=== PATIENT | female | born 2000 | race Caucasian/White ===

== ENCOUNTER 2018-11-14 04:17 | Observation (INO) | payer BC ==
[~2018-11-14] VITALS: Ht 165.1 cm; Wt 61.7 kg
[~2018-11-14 04:17] MED LIST: NORG1TAB75 PO; PRED20TA6 PO
--- NOTE | 2018-11-14 04:19 | ER Report ---
History and Physical Time Seen By MD: 04:19 HPI/ROS CHIEF COMPLAINT: Abdominal pain, hematochezia HISTORY OF PRESENT ILLNESS: Patient is a 18-year-old female here with complaints of abdominal pain which started yesterday with vague abdominal discomfort, dark stools, nausea, vomiting, worsening abdominal pain overnight. Patient does have a history of a recent diagnosis of generalized vasculitis with joint swelling. Patient denies prior history of abdominal pain similar to this, denies diagnosis of IBD. Patient is tachycardic complaining of nausea, vomiting, abdominal pain at time of arrival. Patient is being tapered off of prednisone and was just started on azathioprine. REVIEW OF SYSTEMS: Constitutional: No fever, + chills. Eyes: No discharge. ENT: No sore throat. Cardiovascular: No chest pain, no palpitations. Respiratory: No cough, no shortness of breath. Gastrointestinal: + diffuse abdominal pain, + nausea and vomiting, + dark stools Genitourinary: No hematuria. Musculoskeletal: No back pain. Skin: No rashes. Neurological: No headache. Allergies: Coded Allergies: No Known Drug Allergies (Unverified , 11/14/18) Home Meds Active Scripts Promethazine Hcl (PROMETHAZINE HCL) 25 Mg Tablet, 12.5 MG PO Q8H PRN for NAUSEA, #12 TAB Prov:DONOVAN HILTON MD 11/15/18 Prednisone 10 Mg Tab (PREDNISONE 10 MG TAB) 10 Mg Tablet, 10 MG PO QDAY, #30 TAB Prov:DONOVAN HILTON MD 11/15/18 Reported Medications Azathioprine (AZATHIOPRINE) 50 Mg Tablet, 1 TAB PO QDAY 11/14/18 Norgestimate-Ethinyl Estradiol (TRI-SPRINTEC) 1 Each Tablet, 1 TAB PO QDAY 10/13/18 Discontinued Reported Medications Prednisone (PREDNISONE) 20 Mg Tablet, 15 MG PO QDAY, TAB 10/13/18 Smoking Status: Never Smoker Constitutional Vital Sign - Last 24 Hours 11/14/18 11/14/18 11/14/18 11/14/18 04:24 04:32 04:47 05:02 Temp 99.5 Pulse 123 103 109 104 B/P (MAP) 115/47 Pulse Ox 93 96 95 98 O2 Delivery Room Air 11/14/18 11/14/18 11/14/18 11/14/18 05:17 05:37 06:22 06:37 Pulse 104 102 106 ??? B/P (MAP) 116/67 (83) Pulse Ox 98 95 92 93 11/14/18 11/14/18 11/14/18 06:52 07:07 08:00 Pulse 94 101 97 Pulse Ox 92 91 92 Physical Exam General Appearance: The patient is alert, has no immediate need for airway protection and no signs of toxicity. Uncomfortable appearing Eyes: Pupils equal and round no pallor or injection. ENT, Mouth: Mucous membranes are moist. Respiratory: There are no retractions, lungs are clear to auscultation. Cardiovascular: Rapid regular rhythm Gastrointestinal: Abdomen is soft and diffusely tender. Neurological: No focal neurological deficits Skin: Warm and dry, no rashes. Musculoskeletal: Neck is supple non tender. Extremities are nontender, nonswollen and have full range of motion. DIFFERENTIAL DIAGNOSIS: After history and physical exam differential diagnosis was considered for abdominal pain including but not limited to appendicitis, cholecystitis, gastritis and urinary tract infection, IBD, autoimmune disorder Medical Decision Making Data Points Result Diagram: 11/15/1817 11/15/1817 Laboratory Hematology Test 11/14/18 04:32 11/14/18 04:59 11/14/18 06:08 Erythrocyte Sedimentation Rate 3 mm/HOUR (0-20) Prothrombin Time 15.1 seconds (12.0-14.4) Prothromb Time International Ratio 1.18 Activated Partial Thromboplast Time 25 seconds (23-35) Total Bilirubin 0.7 mg/dl (0.2-1.3) Aspartate Amino Transf (AST/SGOT) 39 U/L (0-35) Alanine Aminotransferase (ALT/SGPT) 28 U/L (0-56) Alkaline Phosphatase 84 U/L (0-126) Lactate Dehydrogenase 489 U/L (0-590) C-Reactive Protein 2.9 mg/dl (<1.0) Total Protein 7.2 g/dl (6.3-8.2) Albumin 3.9 g/dl (3.5-5.0) Lipase 231 U/L (23-300) Lactate 4.1 mmol/L (0.7-2.1) Urine Color Yellow Urine Clarity Clear Urine pH 8.0 pH (4.8-9.5) Urine Specific Dennard 1.045 Urine Protein Negative mg/dL (NEGATIVE) Urine Glucose (UA) Negative mg/dL (NEGATIVE) Urine Ketones Negative mg/dL (NEGATIVE) Urine Blood Negative (NEGATIVE) Urine Nitrite Negative (NEGATIVE) Urine Bilirubin Negative (NEGATIVE) Urine Urobilinogen Negative mg/dL (0.2-1.9) Urine Leukocyte Esterase Negative (NEGATIVE) Urine RBC 2 /HPF (0-2/HPF) Urine WBC 8 /HPF (0-5/HPF) Urine Squamous Epithelial Cells Many /LPF (</=FEW) Urine Bacteria Negative /HPF (NONE-FEW) Urine Mucus None /HPF (NONE-FEW) Chemistry Test 11/14/18 04:32 11/14/18 04:59 11/14/18 06:08 Erythrocyte Sedimentation Rate 3 mm/HOUR (0-20) Prothrombin Time 15.1 seconds (12.0-14.4) Prothromb Time International Ratio 1.18 Activated Partial Thromboplast Time 25 seconds (23-35) Total Bilirubin 0.7 mg/dl (0.2-1.3) Aspartate Amino Transf (AST/SGOT) 39 U/L (0-35) Alanine Aminotransferase (ALT/SGPT) 28 U/L (0-56) Alkaline Phosphatase 84 U/L (0-126) Lactate Dehydrogenase 489 U/L (0-590) C-Reactive Protein 2.9 mg/dl (<1.0) Total Protein 7.2 g/dl (6.3-8.2) Albumin 3.9 g/dl (3.5-5.0) Lipase 231 U/L (23-300) Lactate 4.1 mmol/L (0.7-2.1) Urine Color Yellow Urine Clarity Clear Urine pH 8.0 pH (4.8-9.5) Urine Specific Dennard 1.045 Urine Protein Negative mg/dL (NEGATIVE) Urine Glucose (UA) Negative mg/dL (NEGATIVE) Urine Ketones Negative mg/dL (NEGATIVE) Urine Blood Negative (NEGATIVE) Urine Nitrite Negative (NEGATIVE) Urine Bilirubin Negative (NEGATIVE) Urine Urobilinogen Negative mg/dL (0.2-1.9) Urine Leukocyte Esterase Negative (NEGATIVE) Urine RBC 2 /HPF (0-2/HPF) Urine WBC 8 /HPF (0-5/HPF) Urine Squamous Epithelial Cells Many /LPF (</=FEW) Urine Bacteria Negative /HPF (NONE-FEW) Urine Mucus None /HPF (NONE-FEW) Coagulation Test 11/14/18 04:32 Prothrombin Time 15.1 seconds Prothromb Time International Ratio 1.18 Activated Partial Thromboplast Time 25 seconds Urinalysis Test 11/14/18 06:08 Urine Color Yellow Urine Clarity Clear Urine pH 8.0 pH (4.8-9.5) Urine Specific Dennard 1.045 Urine Protein Negative mg/dL (NEGATIVE) Urine Glucose (UA) Negative mg/dL (NEGATIVE) Urine Ketones Negative mg/dL (NEGATIVE) Urine Blood Negative (NEGATIVE) Urine Nitrite Negative (NEGATIVE) Urine Bilirubin Negative (NEGATIVE) Urine Urobilinogen Negative mg/dL (0.2-1.9) Urine Leukocyte Esterase Negative (NEGATIVE) Urine RBC 2 /HPF (0-2/HPF) Urine WBC 8 /HPF (0-5/HPF) Urine Squamous Epithelial Cells Many /LPF (</=FEW) Urine Bacteria Negative /HPF (NONE-FEW) Urine Mucus None /HPF (NONE-FEW) Microbiology Microbiology Date/Time Source Procedure Growth Status 11/14/18 05:05 Blood Peripheral Draw Blood Culture - Preliminary NO GROWTH AFTER 1 DAY, REINCUBATED Resulted 11/14/18 04:59 Blood Peripheral Draw Blood Culture - Preliminary NO GROWTH AFTER 1 DAY, REINCUBATED Resulted ED Course/Re-evaluation ED Course Patient is a 18-year-old female with a recent history of vasculitis started on azathioprine, weaning off of prednisone currently on 20 mg here with abdominal pain which started yesterday, acutely worsened today with associated nausea, vomiting. Patient is tender in all quadrants on abdominal exam.. CT imaging showed thickening of the stomach wall, proximal small intestine. Patient did have a white count of 19,000, lactate was elevated at 4. ESR CRP were unremarkable. Patient was given 2 L normal saline bolus, Protonix for upper GI bleed suspicion, Solu-Medrol 125 mg, Zofran, fentanyl. Patient had significant relief of symptoms however due to her consolation symptoms in the setting of azathioprine and prednisone immunosuppression, recommendation was made to admit to medicine and consider upper endoscopy scoping to pursue upper GI bleed. H&H are stable. I discussed the patient with Dr. Hilton briefly and Dr. Rashid the underlying dayshift will be contacted. Blood cultures pending. Patient was hemodynamic was stable at time of signout to Dr. Mejia. Decision to Disposition Date: Nov 14, 2018 Decision to Disposition Time: 07:00 Depart Departure Latest Vital Signs Vital Signs Date Time Temp Pulse Resp B/P (MAP) Pulse Ox O2 Delivery O2 Flow Rate FiO2 11/14/18 08:00 97 92 11/14/18 05:37 116/67 (83) 11/14/18 04:24 99.5 Room Air Impression: Primary Impression: Abdominal pain Additional Impression: Melena Condition: Improved Disposition: HOME OR SELF-CARE New Scripts Promethazine Hcl (PROMETHAZINE HCL) 25 Mg Tablet 12.5 MG PO Q8H PRN for NAUSEA, #12 TAB Prov: DONOVAN HILTON MD 11/15/18 Prednisone 10 Mg Tab (PREDNISONE 10 MG TAB) 10 Mg Tablet 10 MG PO QDAY, #30 TAB Prov: DONOVAN HILTON MD 11/15/18 Problem Qualifiers Primary Impression: Abdominal pain Abdominal location: epigastric Qualified Codes: R10.13 - Epigastric pain JOHNNA ALBERT DO Nov 14, 2018 04:19
[2018-11-14] MEDS ORDERED: AZAT50TA25 PO (04:24)
[2018-11-14] MEDS ORDERED: NS(*) 0.9% 1000 ML BAG 1,000 ML IV ONE ×2 (04:45→05:50)
[2018-11-14] MEDS ORDERED: fentaNYL CITR 100 MCG/2 ML AMP IVP ONE (04:45)
[2018-11-14] MEDS ORDERED: methylPREDNIS SUCC 125 MG/2ML IVP ONE (04:45)
[2018-11-14] MEDS ORDERED: ONDANSETRON 4 MG/2 ML VIAL IVP ONE (04:45)
[2018-11-14] MEDS ORDERED: IOPAMIDOL 76% 150 ML INFUS BTL 150 ML ONE (05:08)
[2018-11-14 05:11] LABS: PLATELET COUNT, AUTOMATED 395 K/uL (150-450)
[2018-11-14 05:13] LABS: INR 1.18
--- NOTE | 2018-11-14 06:16 | RADIOLOGY IMAGING REPORT ---
[place] [facility] [place] NAME: Riana Rojas : 2000 MR: [id number] V: [id number] EXAM DATE: ORDERING PHYSICIAN: JOHNNA ALBERT TECHNOLOGIST: Location: [facility] [place] Patient: Riana Rojas : 2000 Visit/Account:[id number] Date of Sevice: 11/14/2018 CT of the abdomen and pelvis with contrast: Indication: Generalized abdominal pain and vomiting. Technique: Helical CT was performed through the abdomen and pelvis following IV contrast enhancement with 5 cc of Isovue-[id number]. Multiplanar reconstructions are reviewed. One of the following dose optimization techniques was utilized in the performance of this exam: Autom ated exposure control; adjustment of the mA and/or kV according to the patient's size; or use of an i terative reconstruction technique. Specific details can be referenced in the facility's radiology CT exam operational policy. Comparison: None available. Lower lung page: No parenchymal or pleural abnormality is identified. Liver: Normal in size, shape, and density. There is uniform enhancement of the venous structures. Gallbladder/biliary tree: The gallbladder is normal in size and homogeneous in density. The bile duct s are not dilated. Pancreas: Normal in size, shape, and density. There are no signs of peripancreatic inflammation or fl uid. Spleen: Normal in size, shape, and density. Adrenal glands: Within normal limits. Kidneys/urinary bladder: The kidneys appear normal in size, shape, and density. There are no signs of urinary tract calculus or obstruction. The bladder appears homogeneous and unremarkable. Intestinal structures: There appears to be thickening and increased enhancement of the wall of the st omach, portions of the small intestine, and proximal colon, suggesting gastroenteritis. The appendix appears normal. The colon is otherwise unremarkable. Pelvis: The uterus is normal in size. The endometrial cavity appears septate. The adnexal structures are unremarkable. Aorta and vascular structures: Within normal limits. Ascites or fluid collections: None seen. Skeletal structures: Well mineralized and intact. Impression: Findings suggestive of gastroenteritis. The appendix appears normal. Report Dictated By: Jonathan Xiao MD at 11/14/2018 5:58 AM Report E-Signed By: Jonathan Xiao MD at 11/14/2018 6:13 AM WSN:[id number]
[2018-11-14] MEDS ORDERED: PANTOPRAZOLE SOD(*)40 MG VIAL 80 MG in NS(*) 0.9% 100 ML BAG 100 ML IVPB ONE (06:35)
[2018-11-14 08:28] VITALS: BP 105/73
[2018-11-14] MEDS ORDERED: INFLUENZA VIRUS VAC 0.5ML SYR IM ONLY ONE (09:15)
[2018-11-14] MEDS ORDERED: predniSONE 5 MG TAB PO SCH (09:30)
--- NOTE | 2018-11-14 09:33 | General Surgery Consultation ---
History of Present Illness Requesting Physician Maldonado Rashid Reason for Consult Abdominal pain, melena Chief Complaint Abdominal pain History of Present Illness Riana Bahena is a 18 year old female with recently diagnosed vasculitis being treated with a prednisone taper and azathioprine. The patient presents today with complaints of epigastric abdominal pain, nausea and vomiting for approximately 24 hours. In regard to her abdominal pain, Riana reports the pain localized to the epigastrium which progressively worsened overnight. She denies any radiation or migration of the pain. She has had nausea and about 5 episodes of vomiting. Riana report her emesis to have been watery; however, her last emesis was bloody in appearance, which she described as "watered down Koolaid." She has been intolerant of PO intake, denies any other aggravating or alleviating factors for her pain / nausea / vomiting. She denies using any PPIs or H2 blockers since initiating her prednisone in September. The patient additionally reports bloody streaking of her stools for about 4 weeks, she denies any archana melena, pain with defecation or need to strain for bowel movements. She does note that since initiating azathioprine therapy her bowel habits have changed. Previously she reports a bowel movement about every 4 days, since beginning azathioprine this has increased to 1-2 soft stools daily. She denies any fevers or chills. She has had no known sick contacts. The patient denies a known personal history of inflammatory bowel diseases but her father does have ulcerative colitis. She denies any prior abdominal surgical history. History Home Meds Reported Medications Azathioprine (AZATHIOPRINE) 50 Mg Tablet, 1 TAB PO QDAY 11/14/18 Prednisone (PREDNISONE) 20 Mg Tablet, 15 MG PO QDAY, TAB 10/13/18 Norgestimate-Ethinyl Estradiol (TRI-SPRINTEC) 1 Each Tablet, 1 TAB PO QDAY 10/13/18 Allergies: Coded Allergies: No Known Drug Allergies (Unverified , 11/14/18) Family History: FH: COPD (chronic obstructive pulmonary disease) GRANDFATHER FH: HTN (hypertension) MOTHER, Age:47 FH: asthma BROTHER OR SISTER FH: diabetes mellitus GRANDMOTHER FH: hypothyroidism BROTHER OR SISTER FH: rheumatoid arthritis FATHER, Age:55 Polycystic ovarian syndrome MOTHER, Age:47 Ulcerative colitis FATHER, Age:55 Review of Systems Constitutional: No Fever, No Weight Loss, No Weight Gain, No Chills, No Night Sweats, No Other Neurological: No Syncope, No Confusion, No Weakness, No Dizziness, No Slurred Speech, No Other Eyes: No Vision Change, No Loss of Vision, No Photophobia, No Other ENT: Sinus Congestion (Chronic, improved with initiation of oral prednisone) Cardiovascular: No Chest Pain, No Palpitations, No Orthostatic Hypotension, No Other Respiratory: No Shortness of Breath, No Cough, No Wheezing, No Other Gastrointestinal: Nausea, Vomiting, Diarrhea, Hematemesis, Other (Small volume blood per rectum) Genitourinary: Other (Vaginal discharge) Musculoskeletal: Other (Recent history of right greater than left ankle pain with swelling, improved with prednisone) Psychiatric: No Depression, No Anxiety, No Other Exam Vital Signs Vital Signs Date Time Temp Pulse Resp B/P (MAP) Pulse Ox O2 Delivery O2 Flow Rate FiO2 11/14/18 08:28 98.4 91 16 105/73 (84) 91 Room Air General Appearance: Alert, Awake, No Acute Distress Neuro: No Gross deficits Eyes: PERRLA ENT: Moist Mucous Membranes, Oropharynx Clear Neck: No Masses Cardiovascular: Normal Rhythm & Peripheral Pulses, Regular Rate and Rhythm, No Edema Respiratory: No Respiratory Distress Chest: No Tenderness GI: Other (Soft, non-distended. Tender to palpation focally in the epigastrium without rebound tenderness or guarding. No palpable masses.) Musculoskeletal: No Weakness/Pain Extremities: Soft and Non Tender, Warm, Perfused Integumentary: Skin Intact without Lesion / Mass Psych: Alert & Oriented X3, Appropriate Mood & Affect Medical Decision Making Data Points Result Diagram: 11/14/1843111/14/18 043 EKG / Imaging Monitor Interpretation: Normal Sinus Rhythm Pre-Admit Course Medical Record Review: Yes Assessment and Plan Problems: (1) Abdominal pain Status: Acute Assessment & Plan: Patient with acute epigastric abdominal pain. CT scan performed on presentation to ED demonstrates gastric wall thickening and diffuse gastrointestinal inflammatory change without evidence of focal perforation or bowel wall ischemia. - Likely represents steroid induced gastritis - No current indication for surgical intervention - Recommend IVF resuscitation - Would recommend high dose BID PPI - Diet as tolerated - Serial abdominal examinations (2) Blood per rectum Status: Chronic Assessment & Plan: Patient with intermittent blood per rectum. No history of melena. Admission H&H does not demonstrate anemia. - Physical exam is without evidence of hemorrhoidal disease. - Given family history of ulcerative colitis patient should undergo diagnostic colonoscopy; however, this is not urgent. - Continue to monitor BP - Serial H&H - Serial abdominal examinations Time Spent: > 30 min Venous Thromboembolism VTE Risk Patient's VTE Risk: Low VTE Diagnostic Test 2 Days Prior to Admit: No Antithrombotics Is Pt On Any Antithrombotics?: No Prophylaxis Tx Contraindicated Pharmacological Contraindicati: Active Bleeding Problem Qualifiers (1) Abdominal pain: Abdominal location: epigastric Qualified Codes: R10.13 - Epigastric pain STACIA OLIVER MD Nov 14, 2018 08:45
[2018-11-14] MEDS: NORGESTIMATE-ETHINYL ESTRADIOL 1 EA TAB PO SCH (10:00)
--- NOTE | 2018-11-14 10:45 | History & Physical ---
History of Present Illness Chief Complaint Blood per rectum History of Present Illness This patient presented to the emergency room complaining of blood in her stool. She reports that she has noticed this for the last 4 weeks. Today she also had an episode of vomiting and diarrhea. She denies any fever or chills. History Problems: (1) Vasculitis Home Meds Reported Medications Azathioprine (AZATHIOPRINE) 50 Mg Tablet, 1 TAB PO QDAY 11/14/18 Prednisone (PREDNISONE) 20 Mg Tablet, 15 MG PO QDAY, TAB 10/13/18 Norgestimate-Ethinyl Estradiol (TRI-SPRINTEC) 1 Each Tablet, 1 TAB PO QDAY 10/13/18 Allergies: Coded Allergies: No Known Drug Allergies (Unverified , 11/14/18) Patient History: FH: COPD (chronic obstructive pulmonary disease) GRANDFATHER FH: HTN (hypertension) MOTHER, Age:47 FH: asthma BROTHER OR SISTER FH: diabetes mellitus GRANDMOTHER FH: hypothyroidism BROTHER OR SISTER FH: rheumatoid arthritis FATHER, Age:55 Polycystic ovarian syndrome MOTHER, Age:47 Ulcerative colitis FATHER, Age:55 Smoking Status: Never Smoker Hx Alcohol Use: No Hx Substance Use Disorder: No Social Drug Use: Never Review of Systems All Systems Reviewed/Normal: Yes, Except as Noted Gastrointestinal: Nausea, Diarrhea, Hematochezia Exam Vital Signs Vital Signs Date Time Temp Pulse Resp B/P (MAP) Pulse Ox O2 Delivery O2 Flow Rate FiO2 11/14/18 08:28 98.4 91 16 105/73 (84) 91 Room Air Neuro: No Gross deficits Cardiovascular: Regular Rate and Rhythm Respiratory: Clear to Auscultation GI: Abd Soft and Non-Tender Extremities: No Edema Integumentary: No Cyanosis Medical Decision Making Data Points Result Diagram: 11/14/18 0432 11/14/18 0432 Assessment and Plan Problems: (1) Blood per rectum Status: Chronic Assessment & Plan: She has had blood in her stool for the last 4 weeks. Her Hgb is stable. A CT scan showed findings consistent with a gastroenteritis. Her bleeding could be secondary to chronic prednisone, but she has been on this for a long time and will be unable to just stop the medication. She has been started on Protonix and general surgery is consulted. (2) Vomiting and diarrhea Assessment & Plan: This developed earlier today and has now resolved. Likely represents a viral gastroenteritis. (3) Vasculitis Venous Thromboembolism Antithrombotics Is Pt On Any Antithrombotics?: No Exam Sepsis Risk: No Definite Risk KESHAV RAWLS DO Nov 14, 2018 10:45
[2018-11-14 11:09] VITALS: BP 101/64
[2018-11-14 13:14] VITALS: Ht 165.1 cm; Wt 61.7 kg
[2018-11-14 15:00] VITALS: BP 110/71
[2018-11-14 18:39] VITALS: BP 113/70
[2018-11-14] MEDS: PANTOPRAZOLE SOD 40 MG IV VIAL IVP SCH (20:59)
[2018-11-14] MEDS ORDERED: azaTHIOprine 50 MG TAB PO SCH (21:00)
[2018-11-15 03:21] VITALS: BP 96/70
[2018-11-15] MEDS ORDERED: ACETAMINOPHEN 500 MG TAB PO PRN (05:40)
[2018-11-15] MEDS ORDERED: PROMETHAZINE 25 MG/ML 1 ML AMP IVP PRN (05:40)
[2018-11-15 05:44] LABS: PLATELET COUNT, AUTOMATED 414 K/uL (150-450)
[2018-11-15 07:57] VITALS: BP 104/62
--- NOTE | 2018-11-15 08:31 | General Surgery Progress Note ---
Subjective Progress Notes Subjective Abdominal pain resolved. One episode of nausea this AM. No emesis since admit. One BM during admit, small volume of blood per rectum followed by normal stool. Vitals and labs stable. Patient Complains of: Gastrointestinal: Nausea Physical Exam Vital Signs Date Time Temp Pulse Resp B/P (MAP) Pulse Ox O2 Delivery O2 Flow Rate FiO2 11/15/18 07:57 98.9 91 16 104/62 (76) 94 Room Air Intake and Output 11/15/18 07:00 Intake Total 0 ml Output Total 15 ml Balance -15 ml Intake Oral 0 ml Output Stool Total 15 ml # Voids 1 # Bowel Movements 1 Result Diagram: 11/15/1851611/15/18516 Monitor Interpretation: Normal Sinus Rhythm Assessment and Plan Problems: (1) Abdominal pain Status: Acute Assessment & Plan: Patient with acute epigastric abdominal pain. CT scan performed on presentation to ED demonstrates gastric wall thickening and diffuse gastrointestinal inflammatory change without evidence of focal perforation or bowel wall ischemia. - Likely represents steroid induced gastritis - No current indication for surgical intervention - Recommend IVF resuscitation - Would recommend high dose BID PPI - Diet as tolerated - Serial abdominal examinations 11/15 Abdominal pain - likely steroid induced gastritis - continue PPI - diet as tolerated - continue steroids and azathioprine - patient OK for DC from Gen Surg standpoint (2) Blood per rectum Status: Chronic Assessment & Plan: Patient with intermittent blood per rectum. No history of melena. Admission H&H does not demonstrate anemia. - Physical exam is without evidence of hemorrhoidal disease. - Given family history of ulcerative colitis patient should undergo diagnostic colonoscopy; however, this is not urgent. - Continue to monitor BP - Serial H&H - Serial abdominal examinations 11/15: Blood per rectum - subacute, present for >4 weeks per patient report - newly diagnosed rheumatologic disorder and fam hx of ulcerative colitis, patient needs a screening colonoscopy and EGD. - This can be done as an outpatient, ideally within 2-4 weeks Time Spent: > 30 min Exam Sepsis Risk: No Definite Risk Problem Qualifiers (1) Abdominal pain: Abdominal location: epigastric Qualified Codes: R10.13 - Epigastric pain STACIA OLIEVR MD Nov 15, 2018 08:31
[2018-11-15] MEDS ORDERED: azaTHIOprine 50 MG TAB PO SCH (09:00)
[2018-11-15] MEDS ORDERED: NORGESTIMATE-ETHINYL ESTRADIOL 1 EA TAB PO SCH (09:00)
[2018-11-15] MEDS ORDERED: predniSONE 5 MG TAB PO SCH (09:00)
[2018-11-15] MEDS: NORGESTIMATE-ETHINYL ESTRADIOL 1 EA TAB PO SCH (10:23)
[2018-11-15] MEDS: PANTOPRAZOLE SOD 40 MG IV VIAL IVP SCH (10:23)
[2018-11-15] MEDS ORDERED: PRED-1 PO (10:57)
--- NOTE | 2018-11-15 11:00 | Hospitalist Depart ---
Discharge Summary Reason for Hosp/Final Diag: (1) Blood per rectum Status: Chronic Hospital Course & Plan: The patient presented with blood in her stool for 4 weeks prior to admission which was new for her. She does have a history of vasculitis and sees a director revenue for this. She had not previously had any problems with her GI tract. Her father has ulcerative colitis. The patient's Hgb remained stable during her admission. A CT scan showed findings consistent with a gastroenteritis. The patient was also on chronic prednisone for her vasculitis, but she had been on this for a long time so it could not be stopped abruptly. She had been tapering it as an outpatient prior to admission. She was started on Protonix and general surgery was consulted. As her blood count remained quite stable, it was felt she could discharge and see surgery as an outpatient to set up upper and lower endoscopies. The patient was instructed to return to [facility] if she had any further bleeding. (2) Vomiting and diarrhea Status: Acute Hospital Course & Plan: Her nausea improved and her diarrhea resolved. This was felt to likely represent a viral gastroenteritis. (3) Vasculitis Status: Chronic Hospital Course & Plan: She sees Dr. Gallegos, rheumatology, and has a follow up appointment scheduled in January. She will continue on her prednisone taper as prescribed by Dr. Pinzon. Departure Weight (Pounds): 136 Result Diagram: 11/15/1851611/15/18516 Condition: Improved Discharge: Home, Self Care Time Spent: < 30 min Discharge Instructions Home Meds Active Scripts Promethazine Hcl (PROMETHAZINE HCL) 25 Mg Tablet, 12.5 MG PO Q8H PRN for NAUSEA, #12 TAB Prov:DONOVAN VILLAGOMEZ MD 11/15/18 Prednisone 10 Mg Tab (PREDNISONE 10 MG TAB) 10 Mg Tablet, 10 MG PO QDAY, #30 TAB Prov:DONOVAN VILLAGOMEZ MD 11/15/18 Reported Medications Azathioprine (AZATHIOPRINE) 50 Mg Tablet, 1 TAB PO QDAY 11/14/18 Norgestimate-Ethinyl Estradiol (TRI-SPRINTEC) 1 Each Tablet, 1 TAB PO QDAY 10/13/18 Discontinued Reported Medications Prednisone (PREDNISONE) 20 Mg Tablet, 15 MG PO QDAY, TAB 10/13/18 Follow up Referrals: General Surgery - In Two Weeks @ Surgery, General Diet: Regular Activity: As Tolerated Special Instructions: Carver diet. Schedule appt. with general surgery in the next 1-2 weeks. Keep appt. with Dr. Pinzon in January. Copies to: OSIEL PINZON DO; LAI FLORES DO ; Venous Thromboembolism Antithrombotics Is Pt On Any Antithrombotics?: No DONOVAN VILLAGOMEZ MD Nov 15, 2018 11:00
[2018-11-15] MEDS ORDERED: PROM-110 PO (11:02)
[2018-11-16] MEDS ORDERED: OMEP-218 PO (03:47)
[2018-11-16] MEDS ORDERED: predniSONE 10 MG TAB PO SCH (09:00)
== END 2018-11-15 10:57 | disposition home or self-care (01) ==
LOC: ER 04:47 → MED 08:04 → INTOOBSV 08:04
PROVIDERS: ADMIT Family Medicine; ATTEND Family Medicine
DX: I77.6 Arteritis, unspecified (principal); R10.13 Epigastric pain; K92.1 Melena
CPT/HCPCS: 36415; 74177; 81001; 83605; 83615; 83690; 85025; 85610; 85651; 85730; 86140; 87040; 96361; 96365; 96375; 99284; C9113; G0378; J2405; J2550; J2930; J3010; J7030; J7050; J7512; Q9967; 82040; 82247; 82310; 82374; 82435; 82565; 82947; 84075; 84132; 84155; 84295; 84450; 84460; 84520

== ENCOUNTER 2018-11-16 03:03 | Emergency (ER) | payer BC ==
[2018-11-14 13:14] VITALS: Wt 61.7 kg
[~2018-11-16 03:03] MED LIST changes: +AZAT50TA25 PO; +PRED-1 PO; +PROM-110 PO
--- NOTE | 2018-11-16 03:19 | ER Report ---
History and Physical Time Seen By MD: 03:14 Hx. of Stated Complaint: went home this morning[facility] after admit for vomiting. started uncontrolled vomiting about 90 min ago. cant keep phenergan down long enough to work (CHARLIE MOSLEY MD) Time Seen By MD: 07:00 (JOHNNA ALBERT DO) HPI/ROS CHIEF COMPLAINT: vomiting, hematemesis HISTORY OF PRESENT ILLNESS: This is a 18 year old female. She was admitted on Saturday for ongoing vomiting and worry for GI bleeding. Reviewing the notes, it looks like the vomiting was thought due to a viral gastroenteritis and she had evidence of a prednisone induced gastritis as well from use of prednisone to treat her vasculitis. Ongoing workup for vasculitis and weaning down prednisone with addition of Azothiaprine. Her H/H was stable during the stay and discharged yesterday mid-day after doing well and controlled vomiting. She went home and ate bland food and liquids, did fine with lunch and with dinner, but then awoke tonight with severe vomiting and headache. She is having epigastric and right upper quadrant abdominal pain. Thought that there was blood in the emesis, but difficult to tell, red and brownish color. No blood in stools since discharge. (CHARLIE MOSLEY MD) HPI/ROS Please see Dr. Mosley note (JOHNNA ALBERT DO) Allergies: Coded Allergies: No Known Drug Allergies (Unverified , 11/16/18) Home Meds Active Scripts Promethazine Hcl (PROMETHAZINE HCL) 25 Mg Tablet, 12.5 MG PO Q8H PRN for NAUSEA, #12 TAB Prov:DONOVAN VILLAGOMEZ MD 11/15/18 Prednisone 10 Mg Tab (PREDNISONE 10 MG TAB) 10 Mg Tablet, 10 MG PO QDAY, #30 TAB Prov:DONOVAN VILLAGOMEZ MD 11/15/18 Reported Medications Omeprazole Magnesium (PRILOSEC OTC) 20 Mg Tablet., 1 TAB PO BID, TAB 11/16/18 Azathioprine (AZATHIOPRINE) 50 Mg Tablet, 1 TAB PO QDAY 11/14/18 Norgestimate-Ethinyl Estradiol (TRI-SPRINTEC) 1 Each Tablet, 1 TAB PO QDAY 10/13/18 Discontinued Reported Medications Prednisone (PREDNISONE) 20 Mg Tablet, 15 MG PO QDAY, TAB 10/13/18 Reviewed Nurses Notes: Yes (CHARLIE MOSLEY MD) Smoking Status: Never Smoker Hx Substance Use Disorder: No Hx Alcohol Use: No (CHARLIE MOSLEY MD) Constitutional Vital Sign - Last 24 Hours 11/16/18 11/16/18 11/16/18 11/16/18 03:09 03:09 03:18 03:30 Temp 97.7 Pulse 120 130 Resp 20 B/P (MAP) 142/118 (126) 148/138 (141) Pulse Ox 98 83 O2 Delivery Room Air 11/16/18 11/16/18 11/16/18 11/16/18 03:48 03:53 04:08 04:23 Pulse 119 117 115 115 Pulse Ox 97 97 96 96 11/16/18 11/16/18 11/16/18 11/16/18 04:38 04:53 04:58 05:27 Pulse 113 ? B/P (MAP) 110/73 (85) Pulse Ox 93 95 11/16/18 11/16/18 11/16/18 05:28 05:43 05:58 Pulse 109 107 103 Pulse Ox 95 93 93 Intake and Output 11/15/18 11/15/18 11/16/18 15:00 23:00 07:00 Intake Total 1090 ml Balance 1090 ml (JOHNNA ALBERT DO) Physical Exam General Appearance: The patient is alert. No acute distress. Non-toxic in appearance. Eyes: Pupils are equal, round. No pallor, injection or icterus. ENT: Mucous membranes are moist. Normal oral mucosa Respiratory: Lungs are clear to auscultation. Cardiovascular: Regular rate and rhythm. No murmurs, gallops or rubs. Normal capillary refill. Gastrointestinal: Abdomen is soft, but is tender in epigastric and right upper quadrant. Nondistended. Hyperactive bowel sounds. No costovertebral angle tenderness with percussion. Neurological: Alert and oriented x3. Skin: Warm and dry. DIFFERENTIAL DIAGNOSIS: After history and physical exam, differential diagnosis was considered for patient with ongoing vomiting, recent diagnosis with what was thought to be viral gastroenteritis as well as prednisone induced gastritis, now with vomiting and probable blood in the emesis. (CHARLIE MOSLEY MD) Physical Exam Please see Dr. Mosley note (JOHNNA ALBERT DO) Medical Decision Making Data Points Result Diagram: 11/16/18 0315 11/16/18 0315 Laboratory Hematology Test 11/16/18 03:10 11/16/18 03:15 Gastric Fluid pH 3 pH Gastric Fluid Occult Blood Positive (NEGATIVE) Red Blood Count 5.15 M/uL (4.17-5.56) Mean Corpuscular Volume 85.5 fL (80.0-96.0) Mean Corpuscular Hemoglobin 28.4 pg (26.0-33.0) Mean Corpuscular Hemoglobin Concent 33.3 g/dL (32.0-36.0) Red Cell Distribution Width 14.8 % (11.5-14.5) Mean Platelet Volume 8.1 fL (7.2-11.1) Neutrophils (%) (Auto) 85.7 % (39.4-72.5) Lymphocytes (%) (Auto) 6.8 % (17.6-49.6) Monocytes (%) (Auto) 6.5 % (4.1-12.4) Eosinophils (%) (Auto) 0.7 % (0.4-6.7) Basophils (%) (Auto) 0.3 % (0.3-1.4) Nucleated RBC Relative Count (auto) 0.0 /100WBC Neutrophils # (Auto) 16.4 K/uL (2.0-7.4) Lymphocytes # (Auto) 1.3 K/uL (1.3-3.6) Monocytes # (Auto) 1.2 K/uL (0.3-1.0) Eosinophils # (Auto) 0.1 K/uL (0.0-0.5) Basophils # (Auto) 0.1 K/uL (0.0-0.1) Nucleated RBC Absolute Count (auto) 0.01 K/uL Peripheral Blood Smear Yes Y/N Sodium Level 139 mmol/L (137-145) Potassium Level 3.6 mmol/L (3.5-5.0) Chloride Level 101 mmol/L (98-107) Carbon Dioxide Level 25 mmol/L (22-31) Blood Urea Nitrogen 10 mg/dl (7-18) Creatinine 0.90 mg/dl (0.52-1.04) Glomerular Filtration Rate Calc > 60.0 Random Glucose 142 mg/dl (75-110) Calcium Level 9.5 mg/dl (8.4-10.2) Total Bilirubin 0.5 mg/dl (0.2-1.3) Aspartate Amino Transf (AST/SGOT) 22 U/L (0-35) Alanine Aminotransferase (ALT/SGPT) 33 U/L (0-56) Alkaline Phosphatase 89 U/L (0-126) Total Protein 7.6 g/dl (6.3-8.2) Albumin 4.1 g/dl (3.5-5.0) Amylase Level 169 U/L (0-110) Lipase 468 U/L (23-300) Chemistry Test 11/16/18 03:10 11/16/18 03:15 Gastric Fluid pH 3 pH Gastric Fluid Occult Blood Positive (NEGATIVE) White Blood Count 19.2 k/uL (4.5-11.0) Red Blood Count 5.15 M/uL (4.17-5.56) Hemoglobin 14.6 g/dL (12.0-16.0) Hematocrit 44.1 % (34.0-47.0) Mean Corpuscular Volume 85.5 fL (80.0-96.0) Mean Corpuscular Hemoglobin 28.4 pg (26.0-33.0) Mean Corpuscular Hemoglobin Concent 33.3 g/dL (32.0-36.0) Red Cell Distribution Width 14.8 % (11.5-14.5) Platelet Count 470 K/uL (150-450) Mean Platelet Volume 8.1 fL (7.2-11.1) Neutrophils (%) (Auto) 85.7 % (39.4-72.5) Lymphocytes (%) (Auto) 6.8 % (17.6-49.6) Monocytes (%) (Auto) 6.5 % (4.1-12.4) Eosinophils (%) (Auto) 0.7 % (0.4-6.7) Basophils (%) (Auto) 0.3 % (0.3-1.4) Nucleated RBC Relative Count (auto) 0.0 /100WBC Neutrophils # (Auto) 16.4 K/uL (2.0-7.4) Lymphocytes # (Auto) 1.3 K/uL (1.3-3.6) Monocytes # (Auto) 1.2 K/uL (0.3-1.0) Eosinophils # (Auto) 0.1 K/uL (0.0-0.5) Basophils # (Auto) 0.1 K/uL (0.0-0.1) Nucleated RBC Absolute Count (auto) 0.01 K/uL Peripheral Blood Smear Yes Y/N Glomerular Filtration Rate Calc > 60.0 Calcium Level 9.5 mg/dl (8.4-10.2) Total Bilirubin 0.5 mg/dl (0.2-1.3) Aspartate Amino Transf (AST/SGOT) 22 U/L (0-35) Alanine Aminotransferase (ALT/SGPT) 33 U/L (0-56) Alkaline Phosphatase 89 U/L (0-126) Total Protein 7.6 g/dl (6.3-8.2) Albumin 4.1 g/dl (3.5-5.0) Amylase Level 169 U/L (0-110) Lipase 468 U/L (23-300) (JOHNNA ALBERT DO) EKG/Imaging Imaging COMPUTED TOMOGRAPHY ABDOMEN AND PELVIS WITH INTRAVENOUS CONTRAST DATE OF EXAM: 11/16/2018 4:27 AM INDICATION: Abdominal pain. COMPARISON: 11/14/2018. TECHNIQUE: Contrast enhanced abdomen and pelvis CT performed during the injection of 75 ml of Isovue 370. Sagittal and coronal reconstructions were performed. One of the following dose optimization techniques was utilized in t he performance of this exam: Automated exposure control; adjustment of the mA and/or kV according to the patient's size; or use of an iterative reconstruction technique. Specific details can be referenced in the facility's radiology CT exam operational policy. FINDINGS: Lung bases: Minimal atelectasis. Liver and hepatic vasculature: Normal. Gallbladder and bile ducts: Normal. Spleen: Normal. Pancreas: Normal. Adrenals: Normal. Kidneys, ureters and bladder: Normal. Retroperitoneum and aorta: Normal aorta. No adenopathy. GI tract, mesentery and peritoneum: Wall thickening involving the stomach and duodenum persistently increased, with associated mucosal enhancement. There is also a small amount of free fluid about the proximal duodenum distal small bowel and proximal colon also appear inflamed. No pneumatosis or pneumoperitoneum. Uterus and adnexa: Normal. Bones and soft tissues: No acute abnormality or suspicious lesion. IMPRESSION: 1. Suspected infectious or inflammatory gastroenteritis/colitis with greatest involvement of the stomach and duodenum. There is now a small volume of free fluid above the proximal duodenum that is most likely reactive. Underlying peptic ulcer disease not excluded. This could be further evaluated with endo scopy if indicated. 2. Normal appendix. Report Dictated By: Waldo Cordoba MD at 11/16/2018 5:21 AM (CHARLIE MOSLEY MD) Imaging PATIENT NAME: Riana Rojas : 2000 MR: [id number] V: [id number] EXAM DATE: ORDERING PHYSICIAN: CHARLIE MOSLEY TECHNOLOGIST: Location: [facility] [place] Patient: Riana Rojas : 2000 Visit/Account:[id number] Date of Sevice: 11/16/2018 EXAMINATION: LIMITED ABDOMINAL ULTRASOUND DATE: 11/16/2018 5:42 AM INDICATION: Right upper quadrant and epigastric pain with vomiting TECHNIQUE: Zavala scale, color and pulsed Doppler ultrasound images of the right upper quadrant were obtained. COMPARISON: Same-day CT abdomen and pelvis. FINDINGS: Pancreas: The pancreas is suboptimally visualized in the tail. There is no significant abnormality in the visualized portion. Aorta and IVC: The imaged abdominal aorta and IVC are patent. Liver: The liver shows normal shape, parenchymal echogenicity and echotexture. The right hepatic lobe measures 17 cm craniocaudal, which is within normal limits. There is no definite focal lesion in the liver. The main portal vein is patent with hepatopedal flow. Bile ducts: The intrahepatic bile ducts are not dilated. The common bile duct measures 2 mm in diameter, which is normal. Gallbladder: The gall bladder is unremarkable with no cholelithiasis, wall thickening, pericholecystic fluid, or sonographic Greenfield's sign. Kidney: The right kidney measures 11.1 x 4.8 x 5.4 cm. The parenchymal echogenicity and thickness appear within normal range. No focal lesion is demonstrated. No hydronephrosis. No ascites. IMPRESSION: No demonstrated acute abnormality. (JOHNNA ALBERT DO) ED Course/Re-evaluation Clinical Indication for ER IV: Hydration, IV Access ED Course Initial evaluation and provided IV with a liter of normal saline and Phenergan 12.5mg IV. Vomiting and headache improved. resting more comfortable. Labs show stable H/H, white count still elevated. Normal LFTs. Amylase and lipase elevated today. Gastroccult is positive. Patient have resumption of vomiting and headache. Vomiting improved with Phenergan 12.5mg IV. Headache still present. 900mg of IV Acetaminophen given. CT scan repeated, essentially unchanged with s ome fluid around duodenum that looks like inflammatory, but cannot rule out ulcer, no free air. Concern with amylase and lipase up and location of pain, so discussed further with the patient and mother as well as Dr. Harry, General surgery. Ultrasound of gallbladder done. (CHARLIE MOSLEY MD) ED Course I assumed patient care from Dr. Mosley at shift change. Patient's gallbladder ultrasound was unremarkable. I discussed the patient with Dr. Peter (GI) and Dr. Cadet (hospitalist) at [facility] who accepted the patient for further evaluation. Patient's mother declined ambulance transport and decided to transport her child via personal vehicle. Patient was stable at time of transfer. Decision to Disposition Date: Nov 16, 2018 Decision to Disposition Time: 10:33 (JOHNNA ALBERT DO) Depart Departure Latest Vital Signs Vital Signs Date Time Temp Pulse Resp B/P (MAP) Pulse Ox O2 Delivery O2 Flow Rate FiO2 11/16/18 05:58 103 93 11/16/18 05:27 110/73 (85) 11/16/18 03:09 97.7 20 Room Air (JOHNNA ALBERT DO) Impression: Primary Impression: Abdominal pain Additional Impression: Blood per rectum Condition: Improved Disposition: XFER TO [facility]UTE [facility]ARE [facility]OS[facility] Referrals: LAI FLORES DO (PCP) Problem Qualifiers CHARLIE MOSLEY MD Nov 16, 2018 03:19 JOHNNA ALBERT DO Nov 16, 2018 07:42
[2018-11-16] MEDS ORDERED: PANTOPRAZOLE SOD 40 MG IV VIAL IVP ONE (03:20)
[2018-11-16] MEDS ORDERED: NS(*) 0.9% 1000 ML BAG 1,000 ML IV ONE (03:20)
[2018-11-16] MEDS ORDERED: PROMETHAZINE 25 MG/ML 1 ML AMP IVP ONE ×2 (03:20→04:30)
[2018-11-16 03:35] LABS: PLATELET COUNT, AUTOMATED 470 K/uL (150-450)
[2018-11-16] MEDS ORDERED: OMEP-218 PO (03:47)
[2018-11-16] MEDS ORDERED: IOPAMIDOL 76% 100 ML INFUS BTL 100 ML ONE (05:03)
[2018-11-16] MEDS ORDERED: ACETAMINOPHEN(*)1000 MG/100 ML 100 ML IVPB ONE (05:15)
[2018-11-16 05:27] VITALS: BP 110/73
--- NOTE | 2018-11-16 05:34 | RADIOLOGY IMAGING REPORT ---
FACILITY: [facility] PATIENT NAME: Riana Rojas : 2000 MR: [id number] V: [id number] EXAM DATE: ORDERING PHYSICIAN: CHARLIE ZAPATA TECHNOLOGIST: Location: [facility] [place] Patient: Riana Rojas : 2000 Visit/Account:[id number] Date of Sevice: 11/16/2018 COMPUTED TOMOGRAPHY ABDOMEN AND PELVIS WITH INTRAVENOUS CONTRAST DATE OF EXAM: 11/16/2018 4:27 AM INDICATION: Abdominal pain. COMPARISON: 11/14/2018. TECHNIQUE: Contrast enhanced abdomen and pelvis CT performed during the injection of 75 ml of Isovue 370. Sagittal and coronal reconstructions were performed. One of the following dose optimization te chradha was utilized in the performance of this exam: Automated exposure control; adjustment of the mA and/or kV according to the patient's size; or use of an iterative reconstruction technique. [facility] details can be referenced in the facility's radiology CT exam operational policy. FINDINGS: Lung bases: Minimal atelectasis. Liver and hepatic vasculature: Normal. Gallbladder and bile ducts: Normal. Spleen: Normal. Pancreas: Normal. Adrenals: Normal. Kidneys, ureters and bladder: Normal. Retroperitoneum and aorta: Normal aorta. No adenopathy. GI tract, mesentery and peritoneum: Wall thickening involving the stomach and duodenum persistently increased, with associated mucosal enhancement. There is also a small amount of free fluid about the proximal duodenum distal small bowel and proximal colon also appear inflamed. No pneumatosis or pne umoperitoneum. Uterus and adnexa: Normal. Bones and soft tissues: No acute abnormality or suspicious lesion. IMPRESSION: 1. Suspected infectious or inflammatory gastroenteritis/colitis with greatest involvement of the sto mach and duodenum. There is now a small volume of free fluid above the proximal duodenum that is mos t likely reactive. Underlying peptic ulcer disease not excluded. This could be further evaluated wi th endoscopy if indicated. 2. Normal appendix. Report Dictated By: Waldo Cordoba MD at 11/16/2018 5:21 AM Report E-Signed By: Waldo Cordoba MD at 11/16/2018 5:28 AM WSN:[id number]
[2018-11-16] MEDS ORDERED: MORPHINE 4 MG/ML SDV IVP ONE (05:50)
--- NOTE | 2018-11-16 07:46 | RADIOLOGY IMAGING REPORT ---
FACILITY: [facility] PATIENT NAME: Riana Rojas : 2000 MR: [id number] V: [id number] EXAM DATE: ORDERING PHYSICIAN: CHARLIE ZAPATA TECHNOLOGIST: Location: [facility] [place] Patient: Riana Rojas : 2000 Visit/Account:[id number] Date of Sevice: 11/16/2018 EXAMINATION: LIMITED ABDOMINAL ULTRASOUND DATE: 11/16/2018 5:42 AM INDICATION: Right upper quadrant and epigastric pain with vomiting TECHNIQUE: Zavala scale, color and pulsed Doppler ultrasound images of the right upper quadrant were ob tained. COMPARISON: Same-day CT abdomen and pelvis. FINDINGS: Pancreas: The pancreas is suboptimally visualized in the tail. There is no significant abnormality in the visualized portion. Aorta and IVC: The imaged abdominal aorta and IVC are patent. Liver: The liver shows normal shape, parenchymal echogenicity and echotexture. The right hepatic lobe measures 17 cm craniocaudal, which is within normal limits. There is no definite focal lesion in the liver. The main portal vein is patent with hepatopedal flow. Bile ducts: The intrahepatic bile ducts are not dilated. The common bile duct measures 2 mm in diamet er, which is normal. Gallbladder: The gall bladder is unremarkable with no cholelithiasis, wall thickening, pericholecysti c fluid, or sonographic Greenfield's sign. Kidney: The right kidney measures 11.1 x 4.8 x 5.4 cm. The parenchymal echogenicity and thickness kevon ear within normal range. No focal lesion is demonstrated. No hydronephrosis. No ascites. IMPRESSION: No demonstrated acute abnormality. Report Dictated By: Waldo Cordoba MD at 11/16/2018 7:40 AM Report E-Signed By: Waldo Cordoba MD at 11/16/2018 7:43 AM WSN:[id number]
[2018-11-16] MEDS ORDERED: KETOROLAC 30 MG/ML VIAL IVP ONE (10:30)
--- NOTE | 2018-11-16 11:07 | Hospitalist Consultation ---
History of Present Illness Requesting Physician Torres Reason for Consult Vomiting/abd pain History of Present Illness 18yo female with a h/o vasculitis causing ankle pain/swelling and recent admission for abd pain/vomiting/blood in stool who came to the ER less than 24 hours after discharge for right sided abd pain and vomiting. See discharge summary for previous admission details. She went home and did well. She lucas erated lunch and breakfast. At about 1am, she got up to have a BM, which was her normal loose stool with trace blood, and then developed intractable nausea and vomiting. There was some blood in the vomitus, but mostly brownish fluid later. She came to the ER. History Problems: (1) Vasculitis Status: Chronic Home Meds Active Scripts Promethazine Hcl (PROMETHAZINE HCL) 25 Mg Tablet, 12.5 MG PO Q8H PRN for NAUSEA, #12 TAB Prov:DONOVAN VILLAGOMEZ MD 11/15/18 Prednisone 10 Mg Tab (PREDNISONE 10 MG TAB) 10 Mg Tablet, 10 MG PO QDAY, #30 TAB Prov:DONOVAN VILLAGOMEZ MD 11/15/18 Reported Medications Omeprazole Magnesium (PRILOSEC OTC) 20 Mg Tablet.dr, 1 TAB PO BID, TAB 11/16/18 Azathioprine (AZATHIOPRINE) 50 Mg Tablet, 1 TAB PO QDAY 11/14/18 Norgestimate-Ethinyl Estradiol (TRI-SPRINTEC) 1 Each Tablet, 1 TAB PO QDAY 10/13/18 Discontinued Reported Medications Prednisone (PREDNISONE) 20 Mg Tablet, 15 MG PO QDAY, TAB 10/13/18 Allergies: Coded Allergies: No Known Drug Allergies (Unverified , 11/16/18) Patient History: FH: COPD (chronic obstructive pulmonary disease) GRANDFATHER FH: HTN (hypertension) MOTHER, Age:47 FH: asthma BROTHER OR SISTER FH: diabetes mellitus GRANDMOTHER FH: hypothyroidism BROTHER OR SISTER FH: rheumatoid arthritis FATHER, Age:55 Polycystic ovarian syndrome MOTHER, Age:47 Ulcerative colitis FATHER, Age:55 Smoking Status: Never Smoker Hx Alcohol Use: No Hx Substance Use Disorder: No Social Drug Use: Never Review of Systems All Systems Reviewed/Normal: Yes, Except as Noted Exam Vital Signs Vital Signs Date Time Temp Pulse Resp B/P (MAP) Pulse Ox O2 Delivery O2 Flow Rate FiO2 11/16/18 05:58 103 93 11/16/18 05:27 110/73 (85) 11/16/18 03:09 97.7 20 Room Air General Appearance: Alert, Awake, Other (Breathing comfortably. Pale. ) Neuro: No Gross deficits ENT: Moist Mucous Membranes Cardiovascular: Other (Tachy, regular) GI: Other (Soft, right sided and epigastric pain with palpation) Musculoskeletal: Other (no joint swelling or erythema in ankles) Extremities: No Edema Medical Decision Making Data Points Result Diagram: 11/16/1831411/16/18314 Item Value Date Time Amylase Level 169 U/L H 11/16/18314 Lipase 468 U/L H 11/16/18314 Total Bilirubin 0.5 mg/dl 11/16/18314 Aspartate Amino Transf (AST/SGOT) 22 U/L 11/16/18314 Alanine Aminotransferase (ALT/SGPT) 33 U/L 11/16/18314 Alkaline Phosphatase 89 U/L 11/16/18314 Gastric Fluid Occult Blood Positive H 11/16/18309 EKG / Imaging Imaging Gall Bladder US - No demonstrated acute abnormality. Abd/Pelvis CT - 1. Suspected infectious or inflammatory gastroenteritis/colitis with greatest involvement of the stomach and duodenum. There is now a small volume of free fluid above the proximal duodenum that is most likely reactive. Underlying peptic ulcer disease not excluded. This could be further evaluated with endoscopy if indicated. 2. Normal appendix. Assessment and Plan Problems: (1) Vomiting and diarrhea Status: Acute Assessment & Plan: She presented with 4 weeks of twice daily blood tingled loose stool and 3 days of abdominal pain and vomiting. She was in the hospital from 11/14-11/15. It was felt that she had a gastroenteritis that was possibly related to steroid use. She was managed conservatively and sent home with a PPI. She returned with right sided abdominal pain, vomiting with blood/brownish fluid, and elevation of amylase/lipase. CT is consistent with gastroenteritis/colitis with greatest involvement in the stomach and duodenum. The general surgeon neuropsychology medical consultant does not do therapeutic endoscopy. Also, the patient is complicated by the ongoing treatment for vasculitis that was started in September. I am concerned about an IBD. She needs evaluation by GI and an EGD/colonoscopy. Because of the above concerns, I would recommend she be transferred to a higher level of care for evaluation. However, I offered admission, which would include treatment of symptoms, hydration, and then consultation with general surgery tomorrow who could do therapeutic endoscopy. I discussed the concerns with the patient and mother. They expressed understanding and were going to discuss it. I spoke with Dr. Albert (ED) about the plan (2) Abdominal pain Status: Acute Assessment & Plan: See above. (3) Vasculitis Status: Chronic Assessment & Plan: See above. Copies to: JOHNNA ALBERT DO ; Venous Thromboembolism Antithrombotics Is Pt On Any Antithrombotics?: No Exam Sepsis Risk: No Definite Risk MAXIMILIAN MORALES MD Nov 16, 2018 11:07
== END 2018-11-16 10:51 | disposition short-term general hospital (02) ==
LOC: ER 03:07
DX: R10.13 Epigastric pain (principal); K92.1 Melena
CPT/HCPCS: 74177; 76705; 82150; 82271; 83690; 83986; 85025; 96365; 96366; 96375; 96376; 99285; C9113; J0131; J1885; J2270; J2550; J7030; Q9967; 82040; 82247; 82310; 82374; 82435; 82565; 82947; 84075; 84132; 84155; 84295; 84450; 84460; 84520